=== PATIENT | male | born 1955 | race Caucasian/White ===

== ENCOUNTER 2020-10-13 22:30 | Emergency (ER) | payer MEDICARE ==
[2020-10-13] MEDS ORDERED: Sodium Chloride 0.9% 1,000 ML IV SCH (23:00)
--- NOTE | 2020-10-13 23:52 | EDM.PDOC ---
ED HPI GENERAL MEDICAL PROBLEM - General Chief Complaint: Neuro Symptoms/Deficits Stated Complaint: HEADACHE AND SLURRED SPEECH Time Seen by Provider: 10/13/20 22:30 Source of Information: Reports: Patient, Family History Limitations: Reports: No Limitations - History of Present Illness INITIAL COMMENTS - FREE TEXT/NARRATIVE: patient presented to the ER with a sudden onset of slurred speech - per 's reports. It lasted for few seconds, before it resolved. no weakness or numbness. no h/o CVA in the past, no h/o CAD. Patient is on Lipitor and ASA 81mg daily. no problems with vision or walking. ED ROS GENERAL - Review of Systems Review Of Systems: See Below Constitutional: Reports: No Symptoms HEENT: Reports: No Symptoms Respiratory: Reports: No Symptoms Cardiovascular: Reports: No Symptoms GI/Abdominal: Reports: No Symptoms : Reports: No Symptoms Skin: Reports: No Symptoms Psychiatric: Reports: No Symptoms ED EXAM, NEURO - Physical Exam Exam: See Below Exam Limited By: No Limitations General Appearance: Alert, WD/WN, No Apparent Distress Eye Exam: Bilateral Eye: EOMI Respiratory/Chest: No Respiratory Distress, Lungs Clear, Normal Breath Sounds Cardiovascular: Normal Peripheral Pulses, Regular Rate, Rhythm GI/Abdominal: Normal Bowel Sounds, Soft, Non-Tender Neurological: Alert, Normal Mood/Affect, Normal Dorsiflexion, Normal Gait, No Motor/Sensory Deficits, Oriented x 3 #1 Interpretation EKG Date: 10/13/20 Rhythm: NSR [place]: Normal P-Wave: Present QRS: Normal ST-T: Normal QT: Normal Comparison: NA - No Prior EKG Course - Orders/Labs/Meds Orders: Active Orders 24 hr Category Date Time Status EKG Documentation Completion [RC] ASDIRECTED Care 10/13/20 22:51 Active Head wo Cont [CT] Stat Exams 10/13/20 22:51 Taken Sodium Chloride 0.9% [Normal Saline] 1,000 ml Med 10/13/20 23:00 Active IV ASDIRECTED Medication Orders Sodium Chloride (Normal Saline) 1,000 mls @ 999 mls/hr IV ASDIRECTED CEDRIC Labs: Laboratory Tests 10/13/20 10/13/20 Range/Units 23:00 23:00 WBC 5.6 (4.0-11.0) K/uL RBC 5.14 (4.50-6.50) M/uL Hgb 11.9 L (13.0-18.0) g/dL Hct 38.8 L (40.0-54.0) % MCV 76 (76-96) fL MCH 23.2 L (27.0-32.0) pg MCHC 30.7 L (31.0-35.0) g/dL RDW 25.7 H (11.0-16.0) % Plt Count 198 (150-400) K/uL MPV 11.0 H (6.0-10.0) fL Sodium 145 (136-145) mmol/L Potassium 3.6 (3.5-5.1) mmol/L Chloride 107 (98-107) mmol/L Carbon Dioxide 30.4 (21.0-32.0) mmol/L Anion Gap 11.2 (5.0-15.0) mmol/L BUN 17 (8-26) mg/dL Creatinine 1.18 (0.70-1.30) mg/dL Est Cr Clr Drug Dosing TNP Estimated GFR (MDRD) > 60 (>60) MLS/MIN BUN/Creatinine Ratio 14.4 (6-25) Glucose 112 H (74-100) mg/dL Calcium 8.8 (8.5-10.1) mg/dL Troponin I < 0.017 (0.000-0.060) ng/mL Meds: Medications Generic Name Dose Route Start Last Admin Trade Name Freq PRN Reason Stop Dose Admin Sodium Chloride 1,000 mls @ 999 mls/hr 10/13/20 23:00 Normal Saline IV ASDIRECTED CEDRIC - Re-Assessments/Exams Free Text/Narrative Re-Assessment/Exam: EKG NSR ct head - no e/o acute ischemic stroke labs WNL patient is asymptomatic at the moment ambulating without problems recommended to f/u with his PCP for US carotids Departure - Departure Time of Disposition: 23:56 Disposition: Home, Self-Care 01 Condition: Good Clinical Impression: TIA (transient ischemic attack) - Discharge Information *PRESCRIPTION DRUG MONITORING PROGRAM REVIEWED*: Not Applicable *COPY OF PRESCRIPTION DRUG MONITORING REPORT IN PATIENT WINSOME: Not Applicable Instructions: Transient Ischemic Attack, Srjp-rn-Opsy Forms: ED Department Discharge Additional Instructions: - take 2 aspirin a day - follow up with your PCP in 1-2 weeks - to discuss ultra sounds of your carotids - recommend to check on your iron levels ( iron study ), as well as, folic acid and B12 levels. - return to the ER if any concerns or recurrence of symptoms - Problem List & Annotations (1) TIA (transient ischemic attack) SNOMED Code(s): 723650922 Code(s): G45.9 - TRANSIENT CEREBRAL ISCHEMIC ATTACK, UNSPECIFIED Status: Acute Priority: Low - Problem List Review Problem List Initiated/Reviewed/Updated: Yes - My Orders Last 24 Hours: My Active Orders 10/13/20 22:51 EKG Documentation Completion [RC] ASDIRECTED Head wo Cont [CT] Stat 10/13/20 23:00 Sodium Chloride 0.9% [Normal Saline] 1,000 ml IV ASDIRECTED - Assessment/Plan Last 24 Hours: My Active Orders 10/13/20 22:51 EKG Documentation Completion [RC] ASDIRECTED Head wo Cont [CT] Stat 10/13/20 23:00 Sodium Chloride 0.9% [Normal Saline] 1,000 ml IV ASDIRECTED Plan: - take 2 aspirin a day - follow up with your PCP in 1-2 weeks - to discuss ultra sounds of your carotids - recommend to check on your iron levels ( iron study ), as well as, folic acid and B12 levels. - return to the ER if any concerns or recurrence of symptoms
--- NOTE | 2020-10-14 09:27 | CT ---
DATE OF SERVICE: 10/13/20 CLINICAL DATA: slurred speech UNENHANCED BRAIN CT: Multislice acquisition through the brain without IV contrast was performed. No priors. There is mild atrophy. No masses or mass effect. No intracranial hemorrhage. No evidence of acute or subacute infarct. There is mild mucosal thickening in the ethmoid sinuses consistent with chronic sinusitis. No osseous abnormalities. IMPRESSION: No acute intracranial abnormalities. [id number] [facility]
== END 2020-10-14 00:05 | disposition home or self-care (01) ==
LOC: LB.ED 22:30
DX: G45.9 Transient cerebral ischemic attack, unspecified (principal)
CPT/HCPCS: 36415; 70450; 80048; 84484; 85027; 93005; 99285; J7030; 99284

== ENCOUNTER 2023-05-22 17:45 | Emergency (ER) | payer MEDICARE, OTHER ==
[2023-05-22 18:15] VITALS: BP 124/80; PULSE 93
== END 2023-05-22 18:28 | disposition home or self-care (01) ==
LOC: LB.ED 17:45
DX: R55 Syncope and collapse (principal); I10 Essential (primary) hypertension
CPT/HCPCS: 93005; 99284